=== PATIENT | male | born 1980 | race African-American/Black ===

== ENCOUNTER 2021-03-30 17:06 | Emergency (ER) | payer SELFPAY ==
[2021-03-30] MEDS ORDERED: Lidocaine 1% PF 5 ML VIAL ONE (19:48)
[2021-03-30] MEDS ORDERED: Ibuprofen 200 MG TAB ONE (20:15)
[2021-03-30] MEDS ORDERED: Boostrix 0.5 ML (Tdap) VIAL ONE (20:16)
== END 2021-03-30 20:51 | disposition home or self-care (01) ==
LOC: ERS 17:06
DX: S61.212A Laceration without foreign body of right middle finger without damage to nail, initial encounter (principal); W45.8XXA Other foreign body or object entering through skin, initial encounter; F17.210 Nicotine dependence, cigarettes, uncomplicated
CPT/HCPCS: 12001; 90471; 90715

== ENCOUNTER 2021-04-16 09:00 | Emergency (ER) | payer BC | END 2021-04-16 10:59 | disposition home or self-care (01) | LOC: ERS 09:00 | DX: S61.212D Laceration without foreign body of right middle finger without damage to nail, subsequent encounter (principal) ==